=== PATIENT | male | born 1980 | race Hispanic/Latino ===

== ENCOUNTER 2020-10-04 01:20 | Emergency (ER) | payer SELFPAY ==
[2020-10-04 04:21] LABS: SARS-COV-2 RT PCR POSITIVE (NEGATIVE)
--- NOTE | 2020-10-04 04:37 | EDPHYS ---
Physician Documentation [facility] Name: Nick Medina Age: 40 yrs Sex: Male : 1980 Arrival Date: 10/04/2020 Time: 01:25 Bed 20 Private MD: ED Physician Clark Ann HPI: 10/04 01:54 This 40 yrs old Male presents to ER via Ambulatory with complaints of Sinus rn Congestion, Doesn't Feel Right, Headache > 24hrs Old, TASTE/SMELL ISSUES. 01:55 The patient complains of pain to the top of head and forehead. The patient describes rn the headache as aching. 01:55 Onset: The symptoms/episode began/occurred yesterday. Associated signs and symptoms: rn Pertinent positives: This patient does not have any pertinent positive signs or symptoms associated with a headache. Pertinent negatives: altered mental status, fever, neck stiffness. Severity of symptoms: At its worst the pain was mild, in the emergency department the pain is unchanged. The symptoms are alleviated by nothing. the symptoms are aggravated by nothing. The patient has not experienced similar symptoms in the past. The patient has not recently seen a physician. Reports headache, top and left side, assoc with sinus pressure and congestion, mild cough, and loss of taste. NO known sick contacts. No sob or chest pain. . Historical: - Allergies: 01:50 No Known Allergies; jb4 - Home Meds: 01:50 None [Active]; jb4 - PMHx: 01:50 None; jb4 - PSHx: 01:50 None; jb4 - Immunization history:: Adult Immunizations unknown. - Social history:: Smoking status: Patient reports the use of cigarette tobacco products, denies chronic smoking, but will smoke occasionally, Patient uses alcohol, occasionally. Patient/guardian denies using street drugs. - Family history:: not pertinent. - Hospitalizations: : No recent hospitalization is reported. ROS: 01:55 Constitutional: + chills Eyes: Negative for injury, pain, redness, and discharge, ENT: rn + sinus congestion Neck: Negative for injury, pain, and swelling, Cardiovascular: Negative for chest pain, palpitations, and edema, Respiratory: + cough, neg for sob Abdomen/GI: Negative for abdominal pain, nausea, vomiting, diarrhea, and constipation, Back: Negative for injury and pain, : Negative for injury, bleeding, discharge, and swelling, MS/Extremity: Negative for injury and deformity, Skin: Negative for injury, rash, and discoloration, Neuro: Negative for numbness, tingling, and seizure. Exam: 01:55 Constitutional: This is a well developed, well nourished patient who is awake, alert, rn and in no acute distress. Head/Face: Normocephalic, atraumatic. Eyes: Pupils equal round and reactive to light, extra-ocular motions intact. Lids and lashes normal. Conjunctiva and sclera are non-icteric and not injected. Cornea within normal limits. Periorbital areas with no swelling, redness, or edema. Vital Signs: 01:45 BP 156 / 114; Pulse 107; Resp 16; Temp 97.8; Pulse Ox 100% on R/A; Pain 8/10; jb4 03:15 BP 131 / 94; Pulse 108; Resp 16; Pulse Ox 96% on R/A; jb4 Jennifer Coma Score: 04:34 Eye Response: spontaneous(4). Verbal Response: oriented(5). Motor Response: obeys rn commands(6). Total: 15. MDM: 01:41 Patient medically screened. rn 04:34 Differential diagnosis: tension headache, vasomotor headache, flu, COVID, Strep. Data rn reviewed: vital signs, nurses notes, lab test result(s), and as a result, I will discharge patient. Counseling: I had a detailed discussion with the patient and/or guardian regarding: the historical points, exam findings, and any diagnostic results supporting the discharge/admit diagnosis, lab results, the need for outpatient follow up, to return to the emergency department if symptoms worsen or persist or if there are any questions or concerns that arise at home. Response to treatment: the patient's symptoms have markedly improved after treatment, and as a result, I will discharge patient. Special discussion: I discussed with the patient/guardian in detail that at this point there is no indication for admission to the hospital. It is understood, however, that if the symptoms persist or worsen the patient needs to return immediately for re-evaluation. ED course: No oxygen requirement, stable vitals, will dc home with steroids and return precautions. . 10/04 01:53 Order name: Flu jb4 10/04 01:53 Order name: Strep jb4 10/04 01:53 Order name: COVID-19 : Document "Date of Symptom Onset" if Symptomatic. jb4 10/04 01:53 Order name: Group A Streptococcus Rapid Sc EDWA 10/04 01:57 Order name: CT Head Brain wo Cont rn 10/04 04:21 Order name: Throat Culture EDWA 10/04 04:22 Order name: COVID-19/FLU A+B EDMS Administered Medications: 04:46 Drug: SOLU-Medrol 125 mg Route: IM; Site: right gluteus; jb4 04:51 Follow up: Response: No adverse reaction jb4 Disposition: 10/04/20 04:37 Discharged to Home. Impression: Coronavirus infection, unspecified. - Condition is Stable. - Discharge Instructions: COVID-19. - Prescriptions for Prednisone 20 mg Oral Tablet - take 1 tablet by ORAL route as directed for 14 days Take 2 tablets once daily for 7 days, followed by 1 tablet once daily for 7 days, total of 14 days.; 21 tablet. Albuterol Sulfate 90 mcg/actuation - inhale 1-2 puff by INHALATION route every 4-6 hours; 1 Inhaler. - Medication Reconciliation Form, Thank You Letter, Antibiotic Education, Prescription Opioid Use form. - Follow up: Private Physician; When: As needed; Reason: Recheck today's complaints, Re-evaluation by your physician. - Problem is new. - Symptoms have improved. Signatures: Dispatcher [employer] [facility] Clark Ann MD MD rn Bryson, James, RN RN jb4 Corrections: (The following items were deleted from the chart) 02:22 01:53 Influenza Screen (A ordered. [facility] EDWA 02:22 01:53 CORONAVIRUS ordered. [facility] EDWA 04:52 04:37 10/04/2020 04:37 Discharged to Home. Impression: Coronavirus infection, jb4 unspecified. Condition is Stable. Forms are Medication Reconciliation Form, Thank You Letter, Antibiotic Education, Prescription Opioid Use. Follow up: Private Physician; When: As needed; Reason: Recheck today's complaints, Re-evaluation by your physician. Problem is new. Symptoms have improved. rn
--- NOTE | 2020-10-04 04:37 | ER ---
Nurse's Notes [facility] Name: Nick Medina Age: 40 yrs Sex: Male : 1980 Arrival Date: 10/04/2020 Time: 01:25 Bed 20 Private MD: Diagnosis: Coronavirus infection, unspecified Presentation: 10/04 01:45 Chief complaint: Patient states: I am having a headache on the left side of my head and jb4 sinus congestion. I noticed earlier I could not taste the coke I was drinking or the pizza. I also have a cough, I took some allergy medication, but it did not help. Coronavirus screen: Client denies travel out of the [place] in the last 14 days. Client presents with at least one sign or symptom that may indicate coronavirus-19. Standard/surgical mask placed on the client. Ebola Screen: No symptoms or risks identified at this time. Initial Sepsis Screen: Does the patient meet any 2 criteria? HR > 90 bpm. Yes Does the patient have a suspected source of infection? No. Patient's initial sepsis screen is negative. Risk Assessment: Do you want to hurt yourself or someone else? Patient reports no desire to harm self or others. Onset of symptoms was October 02, 2020. Transition of care: patient was not received from another setting of care. 01:45 Method Of Arrival: Ambulatory jb4 01:45 Acuity: MARY 4 jb4 Historical: - Allergies: 01:50 No Known Allergies; jb4 - Home Meds: 01:50 None [Active]; jb4 - PMHx: 01:50 None; jb4 - PSHx: 01:50 None; jb4 - Immunization history:: Adult Immunizations unknown. - Social history:: Smoking status: Patient reports the use of cigarette tobacco products, denies chronic smoking, but will smoke occasionally, Patient uses alcohol, occasionally. Patient/guardian denies using street drugs. - Family history:: not pertinent. - Hospitalizations: : No recent hospitalization is reported. Screenin:45 Abuse screen: Denies threats or abuse. Nutritional screening: No deficits noted. jb4 Tuberculosis screening: No symptoms or risk factors identified. Fall Risk None identified. Assessment: 01:45 General: Appears in no apparent distress. uncomfortable, Behavior is calm, cooperative, jb4 appropriate for age. Pain: Complains of pain in head Pain does not radiate. Pain currently is 8 out of 10 on a pain scale. Neuro: Level of Consciousness is awake, alert, obeys commands, Oriented to person, place, time, situation. Cardiovascular: Patient's skin is warm and dry. Respiratory: Airway is patent Respiratory effort is even, unlabored, Respiratory pattern is regular, symmetrical. GI: No signs and/or symptoms were reported involving the gastrointestinal system. : No signs and/or symptoms were reported regarding the genitourinary system. EENT: No signs and/or symptoms were reported regarding the EENT system. Derm: Skin is intact, Skin is pink, warm \T\ dry. Musculoskeletal: Circulation, motion, and sensation intact. Range of motion: intact in all extremities. 02:41 Reassessment: Patient appears in no apparent distress at this time. Patient and/or jb4 family updated on plan of care and expected duration. Pain level reassessed. Patient is alert, oriented x 3, equal unlabored respirations, skin warm/dry/pink. 03:30 Reassessment: Patient appears in no apparent distress at this time. Patient and/or jb4 family updated on plan of care and expected duration. Pain level reassessed. Patient is alert, oriented x 3, equal unlabored respirations, skin warm/dry/pink. 04:32 Reassessment: Patient appears in no apparent distress at this time. Patient and/or jb4 family updated on plan of care and expected duration. Pain level reassessed. Patient is alert, oriented x 3, equal unlabored respirations, skin warm/dry/pink. Vital Signs: 01:45 BP 156 / 114; Pulse 107; Resp 16; Temp 97.8; Pulse Ox 100% on R/A; Pain 8/10; jb4 03:15 BP 131 / 94; Pulse 108; Resp 16; Pulse Ox 96% on R/A; jb4 Vanlue Coma Score: 04:34 Eye Response: spontaneous(4). Verbal Response: oriented(5). Motor Response: obeys rn commands(6). Total: 15. ED Course: 01:25 Patient arrived in ED. am4 01:39 Casey Daigle RN is Primary Nurse. jb4 01:41 Clark Ann MD is Attending Physician. rn 01:45 Patient has correct armband on for positive identification. Bed in low position. Call jb4 light in reach. Side rails up X 1. Pulse ox on. NIBP on. 01:48 Triage completed. jb4 01:50 Arm band placed on right wrist. jb4 02:24 CT Head Brain wo Cont In Process Unspecified. EDMS 04:51 No provider procedures requiring assistance completed. Patient did not have IV access jb4 during this emergency room visit. Administered Medications: 04:46 Drug: SOLU-Medrol 125 mg Route: IM; Site: right gluteus; jb4 04:51 Follow up: Response: No adverse reaction jb4 Outcome: 04:37 Discharge ordered by MD. rn 04:51 Discharged to home ambulatory. jb4 04:51 Condition: stable 04:51 Discharge instructions given to patient, Instructed on discharge instructions, follow up and referral plans. medication usage, Demonstrated understanding of instructions, follow-up care, medications, Prescriptions given X 2. 04:52 Patient left the ED. jb4 Signatures: Dispatcher [employer] EDMS Clark Ann MD MD rn Bryson, James, RN RN jb4 Agatha Orosco 4 Corrections: (The following items were deleted from the chart) 01:51 01:45 Pulse 107bpm; Resp 16bpm; Pulse Ox 100% RA; Temp 97.8F; jb4 jb4 02:20 01:45 BP 156 / 114; Pulse 107bpm; Resp 16bpm; Pulse Ox 100% RA; Temp 97.8F; jb4 jb4 02:20 01:45 Pain: Complains of pain in head Pain does not radiate. Pain currently is 6 out of jb4 10 on a pain scale. jb4
[2020-10-04] MEDS ORDERED: METHYLPREDNISOLONE 125 MG INJ ONE (04:51)
[2020-10-04 05:22] VITALS: TEMP 97.8
[2020-10-04 05:23] VITALS: BP 131/94; O2SAT 96
--- NOTE | 2020-10-04 10:19 | RAD REPORT ---
EXAM DESCRIPTION: CT Head COMPARISON: None. CLINICAL HISTORY: [facility] MAIN HEADACHE TECHNIQUE: Axial images were obtained from skull base to vertex without intravenous contrast. Imag es viewed on bone and brain windows. Multiplanar reformats were performed. Automated exposure contr ol was utilized on this examination as a dose lowering technique. FINDINGS: Brain parenchyma, ventricles, dura, meninges, and extra-axial spaces: Ventricles and sulci are normal. No abnormal attenuation of brain parenchyma is present. No acute intracranial hemor rhage or abnormal extra-axial fluid collections are present. Vascular structures: No hyperdense arteries or veins. Calvarium, mastoid air cells, paranasal sinuses and orbits: The calvarium is normal. The mastoid air cells are clear. Visualized paranasal sinuses are unremarkable. Orbital structures are unremarkable. IMPRESSION: No acute intracranial abnormality. Electronically signed by: Eric Padron MD 10/04/2020 2:35 AM CDT Due to temporary technical issues with the PACS/Fluency reporting system, reports are being signed by the in house radiologist without review as a courtesy to ensure prompt reporting. The interpreting r adiologist is fully responsible for the content of the report.
== END 2020-10-04 04:52 | disposition home or self-care (01) ==
LOC: ER 01:20
DX: U07.1 COVID-19 (principal); F17.210 Nicotine dependence, cigarettes, uncomplicated
CPT/HCPCS: 0240U; 70450; 87070; 87081; 96372; 99284; J2930